=== PATIENT | female | born 1985 | race Caucasian/White ===

== ENCOUNTER 2018-06-01 18:01 | Emergency (ER) | payer OTHER, MEDICAID ==
[~2018-06-01] VITALS: Ht 157.5 cm; Wt 64.0 kg
[2018-06-01 18:30] VITALS: BP 139/84
== END 2018-06-01 20:18 | disposition left against medical advice (07) ==
LOC: ER 19:59
DX: Z53.21 Procedure and treatment not carried out due to patient leaving prior to being seen by health care provider (principal)